=== PATIENT | male | born 2005 | race Caucasian/White ===

== ENCOUNTER 2024-05-06 21:02 | Emergency (ER) | payer MEDICAID ==
[~2024-05-06] VITALS: Ht 185.4 cm; Wt 72.7 kg
[2024-05-06 21:24] VITALS: BP 158/98; TEMP 98.2
[2024-05-06] MEDS ORDERED: TRIAMCINOLONE A15 GM TP (21:55)
[2024-05-06] MEDS ORDERED: Cetirizine 10 MG TAB PO ONE (22:00)
[2024-05-06 22:06] VITALS: PULSE 65
== END 2024-05-06 22:07 | disposition home or self-care (01) ==
LOC: COL.ER 21:02
DX: S80.862A Insect bite (nonvenomous), left lower leg, initial encounter (principal); S80.861A Insect bite (nonvenomous), right lower leg, initial encounter; W57.XXXA Bitten or stung by nonvenomous insect and other nonvenomous arthropods, initial encounter

== ENCOUNTER 2024-08-10 17:56 | Emergency (ER) | payer MEDICAID ==
[~2024-08-10] VITALS: Ht 185.4 cm; Wt 72.7 kg
[~2024-08-10 17:56] MED LIST: TRIAMCINOLONE A15 GM TP
[2024-08-10 20:03] VITALS: BP 135/85; PULSE 64; TEMP 98.4
== END 2024-08-10 20:03 | disposition home or self-care (01) ==
LOC: COL.ER 17:56
DX: S61.213A Laceration without foreign body of left middle finger without damage to nail, initial encounter (principal); F17.290 Nicotine dependence, other tobacco product, uncomplicated; W26.0XXA Contact with knife, initial encounter